=== PATIENT | male | born 1985 ===

== ENCOUNTER 2020-08-05 06:30 | Day surgery (SDC) | payer OTHER | END 2020-08-05 17:11 | disposition home or self-care (01) | LOC: CIR.AMB 06:30 | PROVIDERS: ATTEND Orthopaedic Surgery Hand Surgery | DX: M24.831 Other specific joint derangements of right wrist, not elsewhere classified (principal); M25.331 Other instability, right wrist; Z20.822 Contact with and (suspected) exposure to COVID-19 ==